=== PATIENT | female | born 1955 | race Caucasian/White ===

== ENCOUNTER 2022-10-25 08:54 | Outpatient (REF) | payer OTHER, SELFPAY ==
--- NOTE | ~2022-10-25 | XR_ITS ---
EXAMINATION: XR LEFT KNEE XR LUMBAR SPINE CLINICAL INFORMATION: Knee and low back pain. COMPARISON: None available. TECHNIQUE: 4 view left knee study. 3 view lumbar spine study. FINDINGS: Left knee: There is no evidence of acute fracture or dislocation of the left knee. Left knee joint spaces are maintained. There is minimal spurring lateral facet of the patella. No significant effusion is identified. Spurring about the patella at sites of insertion of the quadriceps and patella tendons is evident. There is a sclerotic margin to a circumscribed lesion within the proximal tibia at the metaphyseal diaphyseal junction measuring approximately 1.7 x 1.2 cm in size. Portions of the sclerotic margin are well-defined and this is likely a benign lesion. There is question of a possible second lesion with sclerotic margins about the lateral aspect of the proximal tibia in the region of the metaphysis, measuring 1.6 x 1.1 cm in size but overlies the proximal fibula and may be related to the fibula. No bony destruction is identified. No adjacent periosteal new bone formation. Lumbar sacral spine: There are 5 [id number] lumbar vertebra. No acute fracture, spondylolisthesis, or spondylolysis is appreciated. There is degenerative disc disease at the L4-L5 and L5-S1 levels with facet arthropathy seen L4-S1. Anterior marginal spurring is seen at the L2-L3 level. Pedicles are intact. No destructive bony lesions are seen. XR/XR lumbar spine 2-3V IMPRESSION: 2 lytic lesions with sclerotic margins at the level of the metaphyseal diaphyseal junction and metaphysis of the proximal left tibia. Margins are generally sharp with no bony destruction, expansion, or periosteal new bone formation. 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 Chondrosarcoma or metastatic lesion would appear less likely; but could have this appearance as well. MRI would be of help in further evaluation. Mild lumbar spondylosis as described.
--- NOTE | ~2022-10-25 | XR_ITS ---
EXAMINATION: XR LEFT KNEE XR LUMBAR SPINE CLINICAL INFORMATION: Knee and low back pain. COMPARISON: None available. TECHNIQUE: 4 view left knee study. 3 view lumbar spine study. FINDINGS: Left knee: There is no evidence of acute fracture or dislocation of the left knee. Left knee joint spaces are maintained. There is minimal spurring lateral facet of the patella. No significant effusion is identified. Spurring about the patella at sites of insertion of the quadriceps and patella tendons is evident. There is a sclerotic margin to a circumscribed lesion within the proximal tibia at the metaphyseal diaphyseal junction measuring approximately 1.7 x 1.2 cm in size. Portions of the sclerotic margin are well-defined and this is likely a benign lesion. There is question of a possible second lesion with sclerotic margins about the lateral aspect of the proximal tibia in the region of the metaphysis, measuring 1.6 x 1.1 cm in size but overlies the proximal fibula and may be related to the fibula. No bony destruction is identified. No adjacent periosteal new bone formation. Lumbar sacral spine: There are 5 [id number] lumbar vertebra. No acute fracture, spondylolisthesis, or spondylolysis is appreciated. There is degenerative disc disease at the L4-L5 and L5-S1 levels with facet arthropathy seen L4-S1. Anterior marginal spurring is seen at the L2-L3 level. Pedicles are intact. No destructive bony lesions are seen. XR/XR knee LT 4V IMPRESSION: 2 lytic lesions with sclerotic margins at the level of the metaphyseal diaphyseal junction and metaphysis of the proximal left tibia. Margins are generally sharp with no bony destruction, expansion, or periosteal new bone formation. 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 Chondrosarcoma or metastatic lesion would appear less likely; but could have this appearance as well. MRI would be of help in further evaluation. Mild lumbar spondylosis as described.
[2022-10-25 11:19] LABS: Free T4 (Free Thyroxine) 1.09 ng/dL (0.71-1.85); T4 Thyroxine 11.8 ug/dL (4.5-12.0); Thyroid Stimulating Hormone 1.27 uIU/mL (0.32-4.0)
[2022-10-27 08:50] LABS: Triiodothyronine T3 Total 143 ng/dL (76-181)
[2022-10-29 20:34] LABS: Thyroglobulin 9.1 ng/mL; Thyroglobulin Antibodies <1 IU/mL (< or = 1)
[2022-10-30 01:19] LABS: Thyroid Peroxidase Antibodies <1 IU/mL (<9)
== END 2022-10-25 08:55 | disposition home or self-care (01) ==
LOC: HO.LAB 08:54
PROVIDERS: PCP Registered Nurse; Visit Provider Registered Nurse
DX: M54.50 Low back pain, unspecified (principal); M25.562 Pain in left knee; G89.29 Other chronic pain; R94.6 Abnormal results of thyroid function studies
CPT/HCPCS: 36415; 72100; 73564; 84432; 84436; 84439; 84443; 84480; 86376; 86800

== ENCOUNTER 2022-12-06 12:39 | Outpatient (REF) | payer OTHER, SELFPAY ==
--- NOTE | ~2022-12-06 | MM_ITS ---
EXAMINATION: MM SCREENING DIGITAL BREAST TOMOSYNTHESIS, BILATERAL CLINICAL INFORMATION: Screening. Asymptomatic. COMPARISON: Mammography: This study is compared with prior exams dating back to 2013. TECHNIQUE: Digital breast tomosynthesis is performed in both the craniocaudal and mediolateral oblique views along with computer-aided detection (CAD). Synthesized 2D images are generated from the tomosynthesis. FINDINGS: There are scattered areas of fibroglandular density (ACR BI-RADS breast composition Category b). There are no significant masses, abnormal calcifications, or other abnormalities. MM/MM tomosynthesis screening BI IMPRESSION: No mammographic evidence of malignancy. ASSESSMENT: BI-RADS BI-RADS 1 - Negative RECOMMENDATION: Routine annual mammography screening. 1 year F/U This examination should not preclude the clinical evaluation of a suspicious palpable abnormality. This patient's information was entered into a reminder system with a target due date for their next mammogram.
--- NOTE | ~2022-12-06 | MM_ITS ---
EXAMINATION: BONE DENSITOMETRY CLINICAL INDICATION: Postmenopausal. COMPARISON: This is the patient's baseline examination. TECHNIQUE: Using a [employer] DXA System (software version: 13.1) manufactured by [employer], dual-energy x-ray absorptiometry was performed of the lumbar spine and left hip. The images are of good technical quality. Summary results are attached. FINDINGS: AP SPINE L1-L4: BMD 0.943 g/cm2, Z-score -0.7, T-score -2.0, osteopenia. LEFT FEMUR, NECK: BMD 0.784 g/cm2, Z-score -0.4, T-score -1.8, osteopenia. LEFT FEMUR, TOTAL: BMD 0.828 g/cm2, Z-score -0.3, T-score -1.4, osteopenia. IDENTIFIED RISK FACTORS: Menopause, renal, low calcium intake, secondary osteoporosis. HISTORY OF FRACTURE: None listed. MEDICATIONS: Calcium, vitamin D. MM/XR DEXA axial skeleton IMPRESSION: 1. DIAGNOSIS: Osteopenia based on the lowest T-score value of -2.0 in the lumbar spine applying World Health Organization criteria. 2. 10-YEAR FRACTURE RISK PREDICTION, FRAX: Major osteoporotic fracture (clinical spine, forearm, hip or shoulder) 6.0%. Hip fracture 1.0%. 3. Treatment Recommendations: NOF guidelines recommend consideration for treatment in postmenopausal women and men age 50 and older presenting with the following: -A hip or vertebral (clinical or morphometric) fracture. -T-score less than or equal to -2.5 at the femoral neck or spine after appropriate evaluation to exclude secondary causes. -Low bone mass at the hip or spine and a 10-year fracture probability by FRAX of greater than or equal to 3% for hip fracture or greater than or equal to 20% for major osteoporotic fracture based on the [place] adapted WHO algorithm. 4. Other Recommendations: All treatment decisions require clinical judgment and consideration of individual patient factors, including patient preferences, comorbidities, previous drug use, risk factors not captured in the FRAX model (e.g. frailty, falls, vitamin D deficiency, increased bone turnover, interval significant decline in bone density) and possible under or overestimation of fracture risk by FRAX. Additional medical evaluation for secondary cause of low bone mineral density may be appropriate. FUTURE SCAN RECOMMENDATION: People with diagnosed cases of osteoporosis or at high risk for fracture should have regular bone mineral density tests. For patients eligible for Medicare, routine testing is allowed once every 2 years. The testing frequency can be increased to one year for patients who have rapidly progressing disease, those who are receiving or discontinuing medical therapy to restore bone mass, or have additional risk factors.
== END 2022-12-06 12:40 | disposition home or self-care (01) ==
LOC: HO.MAMMO 12:39
PROVIDERS: PCP Student in an Organized Health Care Education/Training Program; Visit Provider Student in an Organized Health Care Education/Training Program
DX: Z12.31 Encounter for screening mammogram for malignant neoplasm of breast (principal); Z13.820 Encounter for screening for osteoporosis; Z78.0 Asymptomatic menopausal state
CPT/HCPCS: 77063; 77067; 77080

== ENCOUNTER → 2022-12-06 13:15 | Outpatient (BNV) | payer OTHER, SELFPAY | PROVIDERS: PCP Student in an Organized Health Care Education/Training Program; Visit Provider Radiology Diagnostic Radiology | DX: Z12.31 Encounter for screening mammogram for malignant neoplasm of breast (principal) | CPT/HCPCS: 77063; 77067; 77080 ==

== ENCOUNTER 2023-12-20 13:05 | Outpatient (REF) | payer OTHER, SELFPAY ==
--- NOTE | ~2023-12-20 | MM_ITS ---
EXAMINATION: MM SCREENING DIGITAL BREAST TOMOSYNTHESIS, BILATERAL CLINICAL INFORMATION: Screening. Asymptomatic. COMPARISON: Mammography: Comparison is made with available priors TECHNIQUE: Digital breast mammography with tomosynthesis is performed in both the craniocaudal and mediolateral oblique views along with computer-aided detection (CAD). FINDINGS: There are scattered areas of fibroglandular density (ACR BI-RADS breast composition Category b). There are no significant masses, abnormal calcifications, or other abnormalities. MM/MM tomosynthesis screening BI IMPRESSION: No mammographic evidence of malignancy. ASSESSMENT: BI-RADS BI-RADS 1 - Negative RECOMMENDATION: Routine annual mammography screening. 1 year F/U This examination should not preclude the clinical evaluation of a suspicious palpable abnormality. This patient's information was entered into a reminder system with a target due date for their next mammogram. Electronically signed by: Brooke Moore DO 01/02/2024 08:29 PM EDT
== END 2023-12-20 13:06 | disposition home or self-care (01) ==
LOC: HO.MAMMO 13:05
PROVIDERS: PCP Student in an Organized Health Care Education/Training Program; Visit Provider Student in an Organized Health Care Education/Training Program
DX: Z12.31 Encounter for screening mammogram for malignant neoplasm of breast (principal)
CPT/HCPCS: 77063; 77067

== ENCOUNTER → 2023-12-20 13:15 | Outpatient (BNV) | payer OTHER, SELFPAY | PROVIDERS: PCP Student in an Organized Health Care Education/Training Program; Visit Provider Internal Medicine | DX: Z12.31 Encounter for screening mammogram for malignant neoplasm of breast (principal) | CPT/HCPCS: 77063; 77067 ==

== ENCOUNTER 2024-02-10 08:48 | Outpatient (REF) | payer OTHER, SELFPAY ==
[2024-02-10 11:53] LABS: Hematocrit 46.9 % (37.0-47.0); Mean Corpuscular Hemoglobin 29.7 pg (27.0-33.0); Mean Corpuscular Volume 92.9 fL (80.0-98.0); Mean Platelet Volume 10.1 fL (9.4-12.3); Platelet Count 237 X10*3/uL (160-400); Red Blood Count 5.05 X10*6/uL (4.20-5.50); Red Cell Distribution Width 12.4 % (11.0-16.0); White Blood Count 5.3 X10*3/uL (4.8-10.8)
[2024-02-10 13:18] LABS: Alanine Aminotransferase 20 U/L (0-31); Alkaline Phosphatase 116 U/L (39-117); Anion Gap 13 (12-20); Aspartate Amino Transferase 29 U/L (5-31); Bilirubin Total 0.4 mg/dL (0.0-1.0); Blood Urea Nitrogen 18 mg/dL (9-16); Calcium 9.7 mg/dL (8.4-10.2); Carbon Dioxide 25 mmol/L (22-29); Chloride 105 mmol/L (96-108); Cholesterol 155 mg/dL (<200); Estimated Glomerular Filt Rate > 60; Glucose Random 167 mg/dL (60-115); HDL Cholesterol 50 mg/dL (>40); LDL Cholesterol Calculated 91 mg/dL (<100); Potassium 3.8 mmol/L (3.3-5.1); Sodium 139 mmol/L (135-145); TSH reflex Free T4 2.69 uIU/mL (0.32-4.0); Total Protein 7.9 g/dL (6.5-8.0); Triglycerides 72 mg/dL (<150)
[2024-02-10 13:19] LABS: Vitamin B12 439 pg/mL (200-900)
[2024-02-10 13:27] LABS: Estimated Average Glucose 171 mg/dL; Hemoglobin A1C 330.5649 umol/L; Hemoglobin A1c % 7.6 % (<6.0); Total Hemoglobin (HGBA1C) 5518.5269 umol/L
== END 2024-02-10 08:49 | disposition home or self-care (01) ==
LOC: HO.HHCL 08:48
PROVIDERS: Visit Provider Student in an Organized Health Care Education/Training Program
DX: E11.69 Type 2 diabetes mellitus with other specified complication (principal); Z79.4 Long term (current) use of insulin
CPT/HCPCS: 36415; 80053; 80061; 82607; 82746; 83036; 84443; 85027

== ENCOUNTER 2024-03-07 16:03 | Outpatient (REF) | payer OTHER, SELFPAY ==
--- NOTE | ~2024-03-07 | MR_ITS ---
EXAMINATION: MR BRAIN WITHOUT AND WITH CONTRAST CLINICAL INFORMATION: Vertigo. Pulsatile tinnitus. Hearing loss. COMPARISON: None available. TECHNIQUE: Multiplanar, multisequence MRI of the brain was obtained using a skull base protocol without and following the administration of 7.5 mL of Gadavist intravenous contrast. FINDINGS: No focal restricted diffusion is demonstrated to suggest acute or subacute cerebral ischemia. No evidence of acute or chronic hemorrhagic products on heme-sensitive imaging. Scattered periventricular and deep white matter T2 FLAIR hyperintensities consistent with mild to moderate underlying microangiopathy. Proportional prominence of the ventricles and sulcal spaces without evidence of obstructive hydrocephalus. No abnormal mass effect. No midline shift. Normal appearance of the pituitary gland. Normal positioning of the cerebellar tonsils. No mass of the cerebellopontine angles. Normal appearance of the cranial nerve V, VII, and VIII nerve roots. No edema or vascular loops near the nerve root entry sites. Normal appearance of the internal auditory canals without enhancing mass lesions. No abnormal enhancement along the course of the facial nerves bilaterally. Normal appearance of the labyrinthine structures without loss of T2 signal or abnormal enhancement. Normal arterial and venous vascular flow voids are present. No abnormal intracranial contrast enhancement. Normal, homogeneous marrow signal. Mild mucosal thickening of the paranasal sinuses. No signal abnormalities within the mastoids. MR/MR head/brain wo/w con IMPRESSION: 1. No acute intracranial abnormalities. No abnormal intracranial enhancement. 2. Mild to moderate underlying microangiopathy and generalized cerebral volume loss. 3. No additional MRI abnormalities to explain the patient's symptoms. Electronically signed by: Blaze Bhatti DO 03/18/2024 08:10 AM IMANI BUCKNER
[2024-03-07] MEDS: gadobutroL 7.5 ML VIAL IVPUSH (16:53)
== END 2024-03-07 16:04 | disposition home or self-care (01) ==
LOC: HO.MRI 16:03
PROVIDERS: PCP Student in an Organized Health Care Education/Training Program; Visit Provider Student in an Organized Health Care Education/Training Program
DX: H91.93 Unspecified hearing loss, bilateral (principal); H93.13 Tinnitus, bilateral; R42 Dizziness and giddiness; E11.69 Type 2 diabetes mellitus with other specified complication; Z79.4 Long term (current) use of insulin
CPT/HCPCS: 70553; A9585

== ENCOUNTER 2024-03-24 14:08 | Outpatient (REF) | payer OTHER, SELFPAY ==
[2024-03-24 17:02] LABS: Microalbumin Urine < 5.0 mg/L
== END 2024-03-24 14:09 | disposition home or self-care (01) ==
LOC: HO.HHCL 14:08
PROVIDERS: Visit Provider Student in an Organized Health Care Education/Training Program
DX: E11.69 Type 2 diabetes mellitus with other specified complication (principal); Z79.4 Long term (current) use of insulin
CPT/HCPCS: 82043; 82570

== ENCOUNTER 2024-10-08 11:35 | Outpatient (REF) | payer OTHER, SELFPAY ==
--- OUTSIDE RECORDS SUMMARY | 2024-10-08 12:19 | XMS_ITS | Encounter Summary ---
Author Organization [employer] Address [address] [place] [address] Care Team Providers Care Child Care Counselor Name Role Phone Greer Prince MD Primary Care Pro vider Trena Hagen PharmD Unavailable [phone] Encounter Details Date Type Department Care Team (Late st Contact Info) Description 03/26/[address] [facility] MEDICINE [address] [place] [address] Provider, MD Jose Martin Social History Tobacco Use Types Packs/Day Years Used Date Smoking Tobacco: Never Smokeless Tobacco: Never Alcohol Use Standard Drinks/Week Comments Never 0 (1 standard drink = 0.6 oz pur e alcohol) Depression Answer Date Recorded Patient Health Questionnaire-9 Score 0 09/26/2022 Housing Stability Answer Date Recorded What is your housing situation today? I have terranceeverett sin 02/05/[address] you li ve. Do you have problems with any of the following? None of the above 02/05/2023 Food Insecurity Answer Date Recorded Within the past 12 months, y ou worried that your food would run out before you got money to buy more: Never True 02/05/2023 Within the past 12 months,th e food you bought just didn't last and you didn't have enough money to get more: Never True Transportation Answer Date Recorded In the past 12 months, has l ack of transportation kept you from medical appts, meetings, work or from getting things needed for daily living? No 02/05/2023 Utilities Answer Date Recorded In the past 12 months, has t he electric, gas, oil or water company threatened to shut off services in your home? No 02/05/2023 Depression Answer Date Recorded Patient Health Questionnaire-2 Score 0 09/26/2022 Comments Unknown Sex and Gender Information Value Date Recorded Sex Assigned at Female 09/26/2022 10:13 AM EDT Legal Sex Female 9:01 AM EDT Gender Identity Female 09/26/2022 10:13 AM EDT Sexual Orientation Don't know 11/05/2022 10 :44 AM EDT Sexual Orientation Straight 11/05/2022 10 :44 AM EDT documented as of this encounter Plan of Treatment Upcoming Encounters Date Type Department Care Team (Late st Contact Info) Description 10/12/2024 1:45 PM EDT Office Visit [facility] OPTOMETRY [address], [place] [id number] TarkaVal, OD [address] [place] [address] 10/16/2024 2:30 PM EDT Medication Management [facility] MEDICINE [address] [place] [address] Piers-Tereza Serranosa, PharmD [address] [place] [address] documented as of this encounter Goals Goal Patient Goal Type Associated Problems Recent Progress Patient-Stated? Author Blood Pressure < 140/90 Blood Pressure 100/60(2024 1:55 PM EDT) No Piers-Gambl e, Trena, PharmD Hemoglobin A1c < 7 Result Component 8.7( 2:04 PM EDT) No Piers-Gambl e, Trena, PharmD documented as of this encounter Procedures Procedure Name Priority Date/Time Associated Diagnosis Comments HM COLONOSCOPY Routine 12/03/2023 2:09 PM EDT documented in this encounter Results * Hm Colonoscopy (12/03/2023 2:09 PM EDT) us Historical Provider HEALTH MAINTENANCE Final Result documented in this encounter Visit Diagnoses Not on filedocumented in this encounter Additional Health Concerns Assessment Noted Time PHQ-9 Depression Total Score: 0 09/27/19 23 10:42 AM EDT documented as of this encounter Care Teams Child Care Counselor Relationship Specialty Start Date End Date Greer Prince MD [address] [place] [address] PCP - General Internal Medicine 09/26/22 Trena Hagen, FaisalD [address] [place] [address] Pharmacist Internal Medicine 05/29/24 documented as of this encounter
--- OUTSIDE RECORDS SUMMARY | 2024-10-08 12:19 | XMS_ITS | Clinical Summary ---
Author Organization [address] [facility] Address [address] [place] [address] Phone Care Team Providers Care Stallion Manager Name Role Phone Unavailable Primary Care Provider Unavailabl e Social History Tobacco Use Types Packs/Day Years Used Date Smoking Tobacco: Never Assessed Comments Unknown Sex and Gender Information Value Date Recorded Sex Assigned at Not on file Legal Sex Female 11:35 PM EST Gender Identity Not on file Sexual Orientation Not on file Plan of Treatment Health Maintenance Due Date Last Done Comments Breast Cancer Screening 1955 Diabetes: Annual GFR (Glomer ular Filtration Rate) 1955 Diabetes: Annual Foot Exam 09/19/1963 Diabetes: Annual Retina Eye Exam 09/19/1963 DTaP,Tdap,and Td Vaccines (1 - Tdap) 1972 Pneumococcal Vaccine: 50+ Ye ars (1 of 2 - PCV) 1972 Zoster Vaccines (1 of 2) 09/19/2003 COVID-19 Vaccine ( - 2023-2 5 season) 2023 Cholesterol Screening (Lipid Panel) 08/08/2024 Colorectal Cancer Screening: Colonoscopy 08/08/2024 Depression Screening 08/08/2024 Diabetes: Annual Urine Albumin-Creatinine Ratio (uACR) 08/08/2024 Diabetes: Blood Sugar Contro l Test (HGBA1C) 08/08/2024 Falls Risk Assessment 08/08/2024 Hepatitis C Screening 08/08/2024 Osteoporosis Screening (Bone Density Screening) 08/08/2024 Social Influencers of Health Screening 08/08/2024 Influenza Vaccine (Season Ended) 2024 RSV Immunization Adult Patie nts (1 - 1-dose 75+ series) 2028 HIB Vaccines Aged Out No longer eligi ble based on patient's age to complete this topic HPV Vaccines Aged Out No longer eligi ble based on patient's age to complete this topic Hepatitis A Vaccines Aged Out No long er eligible based on patient's age to complete this topic Hepatitis B Vaccines Aged Out No long er eligible based on patient's age to complete this topic IPV Vaccines Aged Out No longer eligi ble based on patient's age to complete this topic MMR Vaccines Aged Out No longer eligi ble based on patient's age to complete this topic Meningococcal ACWY Vaccine Aged Out N o longer eligible based on patient's age to complete this topic Meningococcal B Vaccine Aged Out No l onger eligible based on patient's age to complete this topic RSV Immunization Patients Un ramirez 20 months Aged Out No longer eligible b ased on patient's age to complete this topic Varicella Vaccines Aged Out No longer eligible based on patient's age to complete this topic Insurance [place] - [place] [facility] MEDICAID
[2024-10-08 13:36] LABS: Hemoglobin A1C 292.4535 umol/L; Total Hemoglobin (HGBA1C) 4014.8683 umol/L
[2024-10-08 13:53] LABS: Alanine Aminotransferase 22 U/L (0-31); Albumin Level 4.0 g/dL (3.5-5.0); Alkaline Phosphatase 94 U/L (39-117); Aspartate Amino Transferase 26 U/L (5-31); Cholesterol 135 mg/dL (<200); HDL Cholesterol 55 mg/dL (>40); Total Protein 7.3 g/dL (6.5-8.0); Triglycerides 51 mg/dL (<150)
== END 2024-10-08 11:36 | disposition home or self-care (01) ==
LOC: HO.HHCL 11:35
PROVIDERS: PCP Student in an Organized Health Care Education/Training Program; Visit Provider Student in an Organized Health Care Education/Training Program
DX: E11.69 Type 2 diabetes mellitus with other specified complication (principal); Z79.4 Long term (current) use of insulin
CPT/HCPCS: 36415; 80061; 80076; 83036

== ENCOUNTER 2024-12-31 17:45 | Outpatient (REF) | payer OTHER, SELFPAY ==
--- OUTSIDE RECORDS SUMMARY | 2024-12-31 15:00 | XMS_ITS | Encounter Summary ---
Author Organization [employer] Address [address] [place] [address] 7 [place] [address] Care Team Providers Care Waist Fitter Name Role Phone Greer Prince MD Primary Care Pro vider Trena Hagen PharmD Unavailable [phone]- [phone] Reason for Referral * Imaging (Routine) - Authorized Specialty Diagnoses / Procedures Referred By Contac t Referred To Contact Radiology Diagnoses Postmenopausal bleeding Procedures US Pelvis Transvaginal Greer Prince MD [address] [place] [address] Phone: tel: fax: [address] Phone: tel: fax: Referral ID Status Reason Start Date Expiration Date V isits Requested Visits Authorized [id number] Authorized 12/31/2024 12/31/2025 1 1 * Imaging (Routine) - Authorized Specialty Diagnoses / Procedures Referred By Contac t Referred To Contact Radiology Diagnoses Postmenopausal bleeding Procedures Us Pelvis complete Greer Prince MD [address] [place] [address] Phone: tel: fax: [address] Phone: tel: fax: Referral ID Status Reason Start Date Expiration Date V isits Requested Visits Authorized [id number] Authorized 12/31/2024 12/31/2025 1 1 Encounter Details Date Type Department Care Team (Late st Contact Info) Description 12/31/2024 3:00 PM EDT Office Visit [facility] MEDICINE [address] [place] [address] Greer Prince MD [address] [place] [address] Type 2 diabetes mellitus with other specified complication, with long-term current use of insulin ([facility]) (Primary Dx); Dietary counseling; Exercise counseling; Health care directive on file; Postmenopausal bleeding; Dysuria; Encounter for immunization Social History Tobacco Use Types Packs/Day Years Used Date Smoking Tobacco: Never Smokeless Tobacco: Never Tobacco Cessation:Counseling Given: Not Answered Alcohol Use Standard Drinks/Week Comments Never 0 (1 standard drink = 0.6 oz pur e alcohol) Depression Answer Date Recorded Patient Health Questionnaire-9 Score 0 12/31/2024 Patient Health Questionnaire-9 Score 0 12/31/2024 Last PHQ-9: Questionnaire Data Not on file 0 12/31/2024 Housing Stability Answer Date Recorded What is your housing situation today? I have terranceeverett sin 12/31/[address] you li ve. Do you have problems with any of the following? None of the above 12/31/2024 Food Insecurity Answer Date Recorded Within the past 12 months, y ou worried that your food would run out before you got money to buy more: Sometimes True 2024 Within the past 12 months,th e food you bought just didn't last and you didn't have enough money to get more: Sometimes True 12/31/2024 Transportation Answer Date Recorded In the past 12 months, has l ack of transportation kept you from medical appts, meetings, work or from getting things needed for daily living? No 12/31/2024 Utilities Answer Date Recorded In the past 12 months, has t he electric, gas, oil or water company threatened to shut off services in your home? No 12/31/2024 Depression Answer Date Recorded Patient Health Questionnaire-2 Score 0 12/31/2024 Internet Access Answer Date Recorded Internet Access Q1 No 12/31/2024 Internet Access Q2 I do not want or need it 12/08 Comments Unknown Sex and Gender Information Value Date Recorded Sex Assigned at Female 09/26/2022 10:13 AM EDT Legal Sex Female 9:01 AM EDT Gender Identity Female 09/26/2022 10:13 AM EDT Sexual Orientation Don't know 11/05/2022 10 :44 AM EDT Sexual Orientation Straight 11/05/2022 10 :44 AM EDT documented as of this encounter Last Filed Vital Signs Vital Sign Reading Time Taken Comments Blood Pressure 100/60 12/31/2024 3:23 PM EDT Pulse 83 12/31/2024 3:23 PM EDT Temperature 36.1 C (96.9 F) 12/31/2024 3:23 PM EDT Respiratory Rate 20 12/31/2024 3:23 PM EDT Oxygen Saturation - - Inhaled Oxygen Concentration - - Weight 69.9 kg (154 lb) 12/31/2024 3:23 PM EDT Height 160 cm (5' 3 ) 12/31/2024 3:23 PM EDT Body Mass Index 27.28 12/31/2024 3:23 PM EDT documented in this encounter Functional Status * Over the past 2 weeks, how often have you been bothered by any of the following problems? Question Answer Date of Assessment Author Patient Health Questionnaire -2 Score 0 12/31/2024 3:24 PM EDT Yoly Ambrose MA * Little interest or pleasure in doing things Answer Date of Assessment Author Not at all 12/31/2024 3:24 PM EDT Chidi Ambrose MA * Feeling down, depressed, or hopeless Answer Date of Assessment Author Not at all 12/31/2024 3:24 PM EDT Chidi Ambrose MA * Trouble falling or staying asleep, or sleeping too much Answer Date of Assessment Author Not at all 12/31/2024 3:24 PM EDT Chidi Ambrose MA * Feeling tired or having little energy Answer Date of Assessment Author Not at all 12/31/2024 3:24 PM EDT Chidi Ambrose MA * Poor appetite or overeating Answer Date of Assessment Author Not at all 12/31/2024 3:24 PM EDT Chidi Ambrose MA * Feeling bad about yourself - or that you are a failure or have let yourself or your family down Answer Date of Assessment Author Not at all 12/31/2024 3:24 PM EDT Chidi Ambrose MA * Trouble concentrating on things, such as reading the newspaper or watching television Answer Date of Assessment Author Not at all 12/31/2024 3:24 PM EDT Chidi Ambrose MA * Moving or speaking so slowly that other people could have noticed? Or the opposite - being so fidgety or restless that you have been moving around a lot more than usual. Answer Date of Assessment Author Not at all 12/31/2024 3:24 PM EDT Chidi Ambrose MA * Thoughts that you would be better off or hurting yourself in some way Answer Date of Assessment Author Not at all 12/31/2024 3:24 PM EDT Chidi Ambrose MA * Patient Health Questionnaire-9 Score Answer Date of Assessment Author 0 12/31/2024 3:24 PM MADYT Chidi Ambrose MA * Over the last 2 weeks, how often have you been bothered by any of the following problems? Question Answer Date of Assessment Author Feeling nervous, anxious, or on edge 0 12/31/2024 3:24 PM EDT Yoly Ambrose MA Not being able to stop or co ntrol worrying 0 12/31/2024 3:24 PM EDT Yoly Ambrose MA Worrying too much about diff erent things 0 12/31/2024 3:24 PM EDT Yoly Ambrose MA Trouble relaxing 0 12/31/2024 3:24 PM EDT Yoly Hinojosa MA Being so restless that it is hard to sit still 0 12/31/2024 3:24 PM EDT Yoly Ambrose MA Becoming easily annoyed or irritable 0 12/31/2024 3:24 PM EDT Yoly Ambrose MA Feeling afraid as if somethi ng awful might happen 0 12/31/2024 3:24 PM EDT Yoly Ambrose MA OR[place]ILLE-7 Total Score 0 12/31/2024 3:24 PM EDT Yoly Ambrose MA documented as of this encounter Plan of Treatment Upcoming Encounters Date Type Department Care Team (Late st Contact Info) Description 05/13/2025 1:30 PM EST Office Visit [facility] OPTOMETRY [address] [place] [address] Val Crowley, OD [address] [place] [address] Scheduled Orders Name Type Priority Associated Diagnoses Orde r Schedule Albumin, Random Urine W/Creatinine Lab Routine Health care directive on file Expected: 12/31/2024 (Approximate), Expires: 12/31/2025 CBC auto differential Lab Routine Health care directive on file Expected: 12/31/2024 (Approximate), Expires: 12/31/2025 Comprehensive Metabolic Panel Lab Routine Health care directive on file Expected: 12/31/2024 (Approximate), Expires: 12/31/2025 Hemoglobin A1c Lab Routine Health care directive on file Expected: 12/31/2024 (Approximate), Expires: 12/31/2025 Lipid Panel, Standard Lab Routine Health care directive on file Expected: 12/31/2024 (Approximate), Expires: 12/31/2025 TSH with Reflex to Free T4 Lab Routine Health care directive on file Expected: 12/31/2024 (Approximate), Expires: 12/31/2025 Vitamin B12 (Cobalamin) and Folate Panel, Serum Lab Routine Health care directive on file Expected: 12/31/2024 (Approximate), Expires: 12/31/2025 Vitamin D, 25-Hydroxy, Total, Immunoassay Lab Routine Health care directive on file Expected: 12/31/2024 (Approximate), Expires: 12/31/2025 Us Pelvis complete Imaging Routine Postmenopausal bleeding Expected: 12/31/2024, Expires: 12/31/2025 US Pelvis Transvaginal Imaging Routine Postmenopausal bleeding Expected: 12/31/2024, Expires: 12/31/2025 documented as of this encounter Goals Goal Patient Goal Type Associated Problems Recent Progress Patient-Stated? Author Blood Pressure < 140/90 Blood Pressure 100/60(2024 3:23 PM EDT) No Trena Sanchez PharmD Hemoglobin A1c < 7 Result Component 8.8( 11:48 AM EDT) No Trena Sanchez PharmD documented as of this encounter Procedures Procedure Name Priority Date/Time Associated Diagnosis Comments URINALYSIS, COMPLETE, WITH REFLEX TO CULTURE Routine 12/31/2024 5:46 PM EDT Dysuria documented in this encounter Results * (ABNORMAL) Urinalysis, Complete, with Reflex to Culture (12/31/2024 5:46 PM EDT) Color Urine Yellow [facility] Appearance Urine Clear [facility] PH 6.0 5.0 - 9.0 [facility] Glucose Urine UA >=1000(A) Negative mg/dL [facility] Urine Blood Negative Negative [facility] Specific [place] - Urine >=1.030(H) 1.005 - 1.025 [facility] Urine Protein Negative Neg-Trace mg/dL [facility] Urine Ketones Negative Negative mg/dL [facility] Nitrite Urine Negative Negative [facility] Leukocyte Esterase Urine Negative Negative [facility] RBC Urine 0-2 0 - 2 /HPF [facility] Urine WBC 0-5 0 - 5 /HPF [facility] Urine Squamous Epithelial Cell 0-2 0 - 2 /HPF [facility] Urine Bacteria None Seen None Seen [facility] Hyaline Casts, Urine 0-2 0 - 2 /LPF [facility] Urine 12/31/2024 5:46 PM EDT 12/31/2024 5:46 PM EDT Narrative [facility] - 12/31/2024 6:23 PM EDT Urine, Clean Catch Greer Winkler MD LAB URINE ORDERAB LES Final Result [facility] [address] [place] [address] [phone] documented in this encounter Visit Diagnoses Diagnosis Type 2 diabetes mellitus with other specified complication, with long-term current use of insulin ([facility])- Primary Dietary counseling Dietary surveillance and counseling Exercise counseling Health care directive on file Postmenopausal bleeding Dysuria Encounter for immunization documented in this encounter Additional Health Concerns Assessment Noted Time PHQ-9 Depression Total Score: 0 01/01/20 3:24 PM EDT documented as of this encounter Care Teams Waist Fitter Relationship Specialty Start Date End Date Greer Prince MD [address] [place] [address] PCP - General Internal Medicine 09/26/22 Trena Hagen, FaisalD [address] [place] [address] Pharmacist Internal Medicine 05/29/24 documented as of this encounter
[2024-12-31 18:12] LABS: Appearance Urine Clear; Glucose Urine UA >=1000 mg/dL (Negative); PH 6.0 (5.0-9.0); Specific Gravity - Urine >= 1.030 (1.005-1.025); UMIC TRIGGER UACC YES
--- OUTSIDE RECORDS SUMMARY | 2024-12-31 20:04 | XMS_ITS | Encounter Summary ---
Author Organization [employer] Address [address] [facility] 7t [place] [address] Care Team Providers Care Boiler Assistant Operator Name Role Phone Greer Prince MD Primary Care Pro vider Trena Hagen PharmD Unavailable [phone]- [phone] Encounter Details Date Type Department Care Team (Latest Contact Info) Description 12/31/2024 Travel Social History Tobacco Use Types Packs/Day Years [...] is your housing situation today? I have terrance sing 12/31/[address] you li [...] AM EDT documented as of this encounter Functional Status * Over the [...] Author Not at all 12/31/2024 3:24 PM MADYT Chidi Ambrose MA * Trouble falling or staying asleep, or sleeping too much Answer Date of Assessment Author Not at all 12/31/2024 3:24 PM MADYT Chidi Ambrose MA * Feeling tired or having little energy Answer Date of Assessment Author Not at all 12/31/2024 3:24 PM EDT Chidi Ambrose MA * Poor appetite or overeating Answer Date of Assessment Author Not at all 12/31/2024 3:24 PM MADYT Chidi Ambrose MA * Feeling bad about [...] of Assessment Author 0 12/31/2024 3:24 PM EDT Chidi Ambrose MA * Over the last [...] Description 05/13/2025 1:30 PM EST Office Visit [facility] OPTOMETRY [address] [place], [place] [phone] Val Crowley, OD [address] [place] [address] documented as of this encounter Goals Goal Patient Goal Type Associated Problems Recent Progress Patient-Stated? Author Blood Pressure < 140/90 Blood Pressure 100/60(2024 3:23 PM EDT) No Trena Sanchez, PharmD Hemoglobin A1c < 7 Result Component 8.8( 11:48 AM EDT) No Trena Sanchez, PharmD documented as of this encounter Visit Diagnoses Not on filedocumented in this encounter Additional Health Concerns Assessment Noted Time PHQ-9 Depression Total Score: 0 01/01/20 3:24 PM EDT documented as of this encounter Care Teams Boiler Assistant Operator Relationship Specialty Start Date End Date Greer Prince MD [address] [place] [address] PCP - General Internal Medicine 09/26/22 Trena Hagen PharmD [address] [place] [phone] Pharmacist Internal Medicine 05/29/24 documented as of this encounter
--- OUTSIDE RECORDS SUMMARY | 2024-12-31 20:04 | XMS_ITS | Encounter Summary ---
Author Organization [employer] Address [address] [place] [address] 7t [place] [address] Care Team Providers Care Petrophysical Engineer Name Role Phone Greer Prince MD Primary Care Pro vider Trena Hagen PharmD Unavailable [phone]- [phone] Reason for Visit * Reason Onset Date Comments Appointment Request 05/19/2024 Encounter Details Date Type Department Care Team ([facility] st Contact Info) Description 05/19/2024 Telephone [facility] MEDICINE [address] [place], [place] [phone] Greer Prince MD [address] [place], [place] [phone] Appointment Request Social History Tobacco Use Types Packs/Day Years [...] AM EDT documented as of this encounter Miscellaneous Notes * Telephone Encounter - Sascha Monzon - 05/19/2024 10:18 AM EST Tc from pt requesting to changed today appt at 1:30pm. Pt is requesting a call back regarding appt change [phone] documented in this encounter Plan of Treatment Upcoming Encounters Date Type Department Care Team (Late st Contact Info) Description 05/13/2025 1:30 PM EST Office Visit [facility] OPTOMETRY [address] [place] [address] Val Crowley, OD [address] [place] [address] documented as of this encounter Goals Goal Patient Goal Type Associated Problems Recent Progress Patient-Stated? Author Blood Pressure < 140/90 Blood Pressure 100/60(2024 3:23 PM EDT) No Prestons-Gambl jasbir, Trena, PharmD Hemoglobin A1c < 7 Result Component 8.8( 11:48 AM EDT) No Prestons-Gambl eTrena, PharmD documented as of this encounter Visit Diagnoses Not on filedocumented in this encounter Additional Health Concerns Assessment Noted Time PHQ-9 Depression Total Score: 0 09/27/19 23 10:42 AM EDT documented as of this encounter Care Teams Petrophysical Engineer Relationship Specialty Start Date End Date Greer Prince MD [address] [place], [place] [phone] PCP - General Internal Medicine 09/26/22 Trena Hagen PharmD [address] [place] [address] Pharmacist Internal Medicine 05/29/24 documented as of this encounter
--- OUTSIDE RECORDS SUMMARY | 2024-12-31 20:04 | XMS_ITS | Encounter Summary ---
Author Organization [employer] Address [address] [place] [address] 7t [place] [address] Care Team Providers Care Correctional Sergeant Name Role Phone Greer Prince MD Primary Care Pro vider Trena Hagen PharmD Unavailable [phone]- [phone] Reason for Visit * Reason Onset Date Comments Other 01/03/2023 Encounter Details Date Type Department Care Team (Late st Contact Info) Description 01/03/2023 Telephone [facility] MEDICINE [address] [place] [address] [phone] Greer Prince MD [address] [place], [place] [phone] Other Social History Tobacco Use Types Packs/Day Years Used Date Smoking Tobacco: Never Smokeless Tobacco: Never Alcohol Use Standard Drinks/Week Comments Never 0 (1 standard drink = 0.6 oz pur e alcohol) Depression Answer Date Recorded Patient Health Questionnaire-9 Score 0 09/26/2022 Depression Answer Date Recorded Patient Health Questionnaire-2 [...] encounter Miscellaneous Notes * Telephone Encounter - Shilpa Nagy - 01/03/2023 10:40 AM EDT Tc from Maria Esther at [facility] calling in regards to MR Knee w/o Contrast Left. States orders needs to say with and without contrast due to diagnoses. Please fax new order to [phone] documented in this encounter Plan of Treatment Upcoming Encounters Date Type Department Care Team (Late st Contact Info) Description 05/13/2025 1:30 PM EST Office Visit [facility] OPTOMETRY [address] [place], [place] [phone] TarkaVal, OD [address] [place] [address] documented as of this encounter Goals Goal [...] documented as of this encounter Care Teams Correctional Sergeant Relationship Specialty Start Date End Date Greer Prince MD [address] [place] [address] PCP - General Internal Medicine 09/26/22 Trena Hagen, PharmD [address] [place], [place] [phone] Pharmacist Internal Medicine 05/29/24 documented as of this encounter
--- OUTSIDE RECORDS SUMMARY | 2024-12-31 20:04 | XMS_ITS | Encounter Summary ---
Author Organization [employer] Address [address] [place] [address] 7t [place] [address] Care Team Providers Care Wireless Consultant Name Role Phone Greer Prince MD Primary Care Pro vider Trena Hagen PharmD Unavailable [phone] Reason for Visit * Reason Comments Med Refill Encounter Details Date Type Department Care Team (Late st Contact Info) Description 01/13/[address] [facility] MEDICINE [address] [place], [place] [phone] Greer Prince MD [address] [place], [place] [phone] Social History Tobacco Use Types Packs/Day Years [...] Description 05/13/2025 1:30 PM EST Office Visit [facility] OPTOMETRY [address] [place], [place] [phone] Val Crowley, OD [address] [place] [address] documented as of this encounter Goals Goal [...] Time PHQ-9 Depression Total Score: 0 09/27/19 10:42 AM EDT documented as of this encounter Care Teams Wireless Consultant Relationship Specialty Start Date End Date Greer Prince MD [address] [place] [address] PCP - General Internal Medicine 09/26/22 Trena Hagen, PharmD [address] [place] [phone] Pharmacist Internal Medicine 05/29/24 documented as of this encounter
--- OUTSIDE RECORDS SUMMARY | 2024-12-31 20:04 | XMS_ITS | Encounter Summary ---
Author Organization [employer] Address [address] [place] [address] 7t [place] [address] Care Team Providers Care Electrophysiology Tech Name Role Phone Greer Prince MD Primary Care Pro vider Trena Hagen PharmD Unavailable [phone]- [phone] Reason for Visit * Reason Comments Med Change Request Encounter Details Date Type Department Care Team (Late st Contact Info) Description 12/31/2024 Refill [facility] MEDICINE [address] [place], [place] [phone] Greer Prince MD [address] [place], [place] [phone] Type 2 diabetes mellitus with other specified complication, with long-term current use of insulin ([facility]) Social History Tobacco Use Types Packs/Day Years [...] Description 05/13/2025 1:30 PM EST Office Visit [facility] OPTOMETRY [address] [place] [address] Val Crowley, OD [address] [place] [address] documented as of this encounter Goals Goal Patient Goal Type Associated Problems Recent Progress Patient-Stated? Author Blood Pressure < 140/90 Blood Pressure 100/60(2024 3:23 PM EDT) No Trena Sanchez PharmD Hemoglobin A1c < 7 Result Component 8.8( 11:48 AM EDT) No Trena Sanchez PharmD documented as of this encounter Visit Diagnoses Diagnosis Type 2 diabetes mellitus with other specified complication, with long-term current use of insulin ([facility]) documented in this encounter Additional Health Concerns Assessment Noted Time PHQ-9 Depression Total Score: 0 01/01/20 25 3:24 PM EDT documented as of this encounter Care Teams Electrophysiology Tech Relationship Specialty Start Date End Date Greer Prince MD [address] [place] [address] PCP - General Internal Medicine 09/26/22 Trena Hagen PharmD [address] [place] [phone] Pharmacist Internal Medicine 05/29/24 documented as of this encounter
--- OUTSIDE RECORDS SUMMARY | 2024-12-31 20:04 | XMS_ITS | Encounter Summary ---
Author Organization [employer] Address [address] [place] [address] 7 [place] [address] Care Team Providers Care Passenger Elevator Operator Name Role Phone Greer Prince MD Primary Care Pro vider Trena Hagen PharmD Unavailable [phone]- [phone] Encounter Details Date Type Department Care Team (Late st Contact Info) Description 04/22/2024 Telephone [facility] MEDICINE [address] [place], [place] [phone] Greer Prince MD [address] [place], [place] [phone] Social History Tobacco Use Types Packs/Day Years Used Date Smoking Tobacco: Never Smokeless Tobacco: Never Alcohol Use Standard Drinks/Week Comments Never 0 (1 standard drink = 0.6 oz pur e alcohol) Depression Answer Date Recorded Patient Health Questionnaire-9 Score 0 09/26/2022 Housing Stability Answer Date Recorded What is your housing situation today? I have terrance sin 02/05/[address] you [...] Description 05/13/2025 1:30 PM EST Office Visit [facility] OPTOMETRY [address] [place], [place] [phone] Val Crowley, OD [address] [place] [address] documented as of this encounter Goals Goal [...] documented as of this encounter Care Teams Passenger Elevator Operator Relationship Specialty Start Date End Date Greer Prince MD [address] [place] [address] [phone] PCP - General Internal Medicine 09/26/22 Trena Hagen, PharmD [address] [place] [phone] Pharmacist Internal Medicine 05/29/24 documented as of this encounter
--- OUTSIDE RECORDS SUMMARY | 2024-12-31 20:04 | XMS_ITS | Encounter Summary ---
Author Organization [email or web address] Address [address] [facility] 7t [place] [address] Care Team Providers Care Foreign Food Cook Specialty Name Role Phone Greer Prince MD Primary Care Pro vider Trena Hagen PharmD Unavailable [phone]- [phone] Encounter Details Date Type Department Care Team ([facility] st Contact Info) Description 12/30/2024 Telephone [facility] [address] [place], [place] [phone] [place] Social History Tobacco Use Types Packs/Day Years [...] housing situation today? I have terrance sin 12/31/[address] you [...] encounter Miscellaneous Notes * Telephone Encounter - Ashley Mckinney MA - 12/30/2024 3:08 PM EDT Chart Prep Labs: done Images: not applicable Referrals: internal Vaccines due: Covid and Flu Screenings: eye exam and foot exam Overdue care gaps: SBIRT, SDOH, and PHQ-9 documented in this encounter Plan of Treatment Upcoming Encounters Date Type Department Care Team (Late st Contact Info) Description 05/13/2025 1:30 PM EST Office Visit [facility] OPTOMETRY [address] [place] [address] Val Crowley, OD [address] [place] [address] documented as of this encounter Goals Goal Patient Goal Type Associated Problems Recent Progress Patient-Stated? Author Blood Pressure < 140/90 Blood Pressure 100/60(2024 3:23 PM EDT) No PrestonsTrena Burk, PharmD Hemoglobin A1c < 7 Result Component 8.8( 11:48 AM EDT) No Trena Sanchez, PharmD documented as of this encounter Visit Diagnoses Not on filedocumented in this encounter Additional Health Concerns Assessment Noted Time PHQ-9 Depression Total Score: 0 09/27/19 10:42 AM EDT documented as of this encounter Care Teams Foreign Food Cook Specialty Relationship Specialty Start Date End Date Greer Prince MD [address] [place] [address] PCP - General Internal Medicine 09/26/22 Trena Hagen, Herve [address] [place] [phone] Pharmacist Internal Medicine 05/29/24 documented as of this encounter
--- OUTSIDE RECORDS SUMMARY | 2024-12-31 20:04 | XMS_ITS | Clinical Summary ---
Author Organization [address] [facility] Address [address] [place] [address] Phone Care Team Providers Care Seismic Plotter Name Role Phone Unavailable Primary Care Provider [...] Last Done Comments Breast Cancer Screening 1955 DTaP,Tdap,and Td Vaccines (1 - Tdap) 1972 Pneumococcal Vaccine: 50+ Ye ars (1 of 2 - PCV) 1972 Zoster Vaccines (1 of 2) 09/19/2003 Depression Screening 04/08/2024 Colorectal Cancer Screening: Colonoscopy 08/08/2024 Falls Risk Assessment 08/08/2024 Hepatitis C Screening 08/08/2024 Osteoporosis Screening (Bone Density Screening) 08/08/2024 Social Influencers of Health Screening 08/08/2024 COVID-19 Vaccine ( - 2023-2 5 season) 2024 Influenza Vaccine (#1) 2024 RSV Immunization Adult Patie nts (1 [...] complete this topic Insurance [place] - [place] [facility] MEDICAID
--- OUTSIDE RECORDS SUMMARY | 2024-12-31 20:04 | XMS_ITS | Clinical Summary ---
Author Organization [employer] Address [address] [place] [address] [address] [place] [address] Care Team Providers Care Orthopaedic Surgeon Name Role Phone Greer Prince MD Primary Care Pro vider Trena Hagen PharmD Unavailable Allergies Active Allergy Reactions Criticality Noted Date Comments Metformin 10/29/2022 Other reaction(s): GI Medications Diclofenac Sodium (Voltaren) 1 % gelIndications :Chronic bilateral low back pain without sciatica,Chron ic pain of left knee Apply 2 g topically if needed in the morning and at bedtime (muscle pain). 100 g 3 05/06/19 24 Active lidocaine (Lidoderm) 5 % patch APPLY 1 PATCH TOPICALLY TO SKIN IN THE MORNING. LEAVE ON FOR 12 HOURS AND OFF FOR 12 HOURS DIRECTED 30 patch 2 05/09/19 24 Active melatonin 3 MG tablet TAKE 1 TABLET BY MOUTH DAILY AT BEDTIME 30 tablet 2 06/10/19 24 Active omeprazole (PriLOSEC) [address] capsule TAKE 1 CAPSULE BY MOUTH ONCE DAILY BEFORE BREAKFAST 90 capsule 1 08/06/19 24 Active aspirin (Aspirin Low Dose) 81 MG EC tablet Take 1 tablet (81 mg) by mouth Once per day. 90 tablet 1 01/13/20 24 Active meclizine (Antivert) 25 MG tabletIndicati ons:Dizziness Take 0.5 tablets (12.5 mg) by mouth every 8 (eight) hours if needed for dizziness. 30 tablet 01/15/20 24 025 Active acetaminophen (Tylenol) 325 MG tabletIndicati ons:Chronic pain of left knee Take 1-2 tablets (325-650 mg) by mouth every 8 (eight) hours if needed (pain or fever). 100 tablet 2 01/15/20 24 025 Active Continuous Glucose Geophysical Party Chief (FreeStyle Janey 2 [place]) deviceIndicati ons:Type 2 diabetes mellitus with other specified complication, with long-term current use of insulin ([facility]) Use as directed to monitor glucose ever 8 hours. 1 each 01/31/20 24 Active rosuvastatin (Crestor) 20 MG tabletIndicati ons:Type 2 diabetes mellitus with other specified complication, with long-term current use of insulin ([facility]) Take 1 tablet (20 mg) by mouth Once per day. 30 tablet 11 03/03/20 24 025 Active dapagliflozin (Farxiga) 10 MGIndications: Type 2 diabetes mellitus with other specified complication, with long-term current use of insulin ([facility]) Take 1 tablet (10 mg) by mouth in the morning. 90 tablet 3 04/14/19 25 Active glucose blood (FreeStyle Precision Nathan Test) test stripIndicatio ns:Type 2 diabetes mellitus with other specified complication, with long-term current use of insulin ([facility]) Test blood sugar up to 3 times daily as directed 100 each 04/14/19 25 Active TRUEplus Lancets 33G miscIndication s:Type 2 diabetes mellitus with other specified complication, with long-term current use of insulin ([facility]) Test blood sugar up to 3 times daily as directed 100 each 04/14/19 25 Active Multiple Vitamin (multivitamin) tablet Take 1 tablet by mouth Once per day. 90 tablet 3 04/20/19 25 Active ammonium lactate (Lac-Hydrin) 12 % lotionIndicati ons:Xerosis of skin APPLY TOPICALLY TO THE AFFECTED AREA(S) EVERY DAY NEEDED FOR DRY SKIN 400 mL 1 05/18/19 25 Active latanoprost (Xalatan) 0.005 % ophthalmic solution ADMINISTER 1 DROP INTO BOTH EYES ONCE PER DAY. 7.5 mL 1 07/30/19 25 Active Lantus SoloStar 100 UNIT/ML penIndications :Type 2 diabetes mellitus with other specified complication, with long-term current use of insulin ([facility]) Inject subcutaneously 36 units once daily 15 mL 3 10/21/19 25 Active insulin lispro (HumaLOG KWIKPEN) 100 UNIT/ML injectionIndic ations:Type 2 diabetes mellitus with other specified complication, with long-term current use of insulin ([facility]) Inject subcutaneously 4 units once daily before dinner. Do not use if skipping meal. 15 mL 10/21/19 Active insulin pen needle (BD ULTRA-FINE PEN NEEDLES) 29G x 12.7mm miscIndication s:Type 2 diabetes mellitus with other specified complication, with long-term current use of insulin (CMS/HCC) Use with insulin administration twice daily as directed 100 each 10/21/19 25 Active Alcohol Swabs (Alcohol Prep) 70 % padsIndication s:Type 2 diabetes mellitus with other specified complication, with long-term current use of insulin (CMS/HCC) Use as directed 100 each 10/21/19 25 Active Continuous Glucose Geophysical Party Chief (FreeStyle Janey 3 [place]) deviceIndicati ons:Type 2 diabetes mellitus with other specified complication, with long-term current use of insulin (CMS/HCC) 1 each Once per day. Use as directed for CGM 1 each 01/01/20 25 Active Continuous Glucose Sensor (FreeStyle Janey 3 Plus Sensor) miscIndication s:Type 2 diabetes mellitus with other specified complication, with long-term current use of insulin (CMS/HCC) 1 each every 15 days. Apply 1 every 15 days as directed for CGM 2 each 01/01/20 25 Active glucose blood (FreeStyle Precision Nathan Test) test strip Check 4 times a day 100 each 01/01/20 25 026 Active clotrimazole (Lotrimin) 1 % cream Apply topically 2 times daily for 28 days. 30 g 2 01/01/20 25 025 Active hydrOXYzine HCl (Atarax) 10 MG tablet TAKE 1 TABLET BY MOUTH EVERY DAY AT BEDTIME NEEDED FOR ITCHING 30 tablet 2 12/13/19 24 025 Discontin ued(Other ) Continuous Glucose Sensor (FreeStyle Janey 2 Sensor) miscIndication s:Type 2 diabetes mellitus with other specified complication, with long-term current use of insulin (CMS/HCC) Use as directed to monitor glucose ever 8 hours. Replace sensor every 14 days. 2 each 03/24/20 24 025 Discontin ued(Other ) Active Problems Problem Noted Date Diagnosed Date Osteopenia 02/05/2023 GERD (gastroesophageal reflux disease) 3 Pruritus 11/05/2022 Hearing loss 11/05/2022 Coronary artery disease invo lving [place] heart with other form of angina pectoris, unspecified vessel or lesion type 11/05/2022 Chronic pain of left knee 10/09/2022 Overview (10/09/2022): Chronic pain Unknown etiology Records pending from previous PCP Assessment & Plan (10/09/2022 6:59 PM EDT): Will order xray, notify results Rx Voltaren gel Followup 2 weeks with new PCP Constipation 10/09/2022 Overview (04/21/2024): Chronic Assessment & Plan (04/21/2024 8:46 AM EST): Continue Miralax and dietary changes (water and fiber) as first line treatments Assessment & Plan (10/09/2022 7:07 PM EDT): Due for colonoscopy Rx docusate sodium 100 mg BID Prn for constipation Refer to GI d/t chronic constipation and rectal bleeding Continue med for constipation & hemorrhoid ointment Followup 2 weeks or sooner with PCP Chronic bilateral low back pain without sciatica 09/26/2022 Overview (10/09/2022): Chronic pain Unknown etiology Records pending from previous PCP Assessment & Plan (10/09/2022 6:58 PM EDT): Will order xray, notify results Rx Voltaren gel Followup 2 weeks with new PCP Depression 09/26/2022 Diabetes mellitus 09/26/2022 Overview (01/16/2024): Education provided re: therapeutic lifestyle changes. Encouraged patient to exercise/walk as much as possible, avoid soda/sugary beverages, drink water, eat high fiber/whole grains, fresh or frozen fruits and veg, try to avoid greasy and/or sugary foods. DM regimen: - Farxiga 5 mg daily - Trulicity 0.75 mg/0.5ml weekly - Lantus, unknown amount of units? Checking BG twice a day Continue gabapentin 100 mg. Schedule Med Rec w/ MTM for medbox to confirm dosage Lab Results Component Value Date HGBA1C 7.4 (A) 01/15/2024 A1c: 7.4 on 01/15/24 (Target </= 7.0) Microalbumin/Cr:Alb: pending Lipids: pending Eye exam: discuss at next appt Dental: discuss at next appt PNA (PPSV, then PCV 13): No record, pending records from previous PCP. Discuss PCV 20 at next visit TDap/Td: Perform at next visit Foot exam/peripheral pulses: Perform at next visit KENNY/ARB: lisinopril 5 mg Statin: atorvastatin 40 mg Assessment & Plan (04/21/2024 8:46 AM EST): Continue followup with CDTM Assessment & Plan (10/09/2022 7:05 PM EDT): Continue current regimen Refer to MTM Check lipid panel and microalbumin Followup 2 weeks or sooner PRN External hemorrhoids 09/26/2022 Overview (09/26/2022): otherwise normal colonoscopy, repeat in 10 years ie 2021 Glaucoma 09/26/2022 Hypertension 09/26/2022 Assessment & Plan (04/21/2024 8:48 AM EST): -Lisinopril held following ED visit for dizziness -Reports home BP values in the 10-120s/60s-70s. Continue to HOLD lisinopril and continue monitoring home BP readings. -Follow up for HDF with in person visit, to be scheduled Assessment & Plan (01/16/2024 3:13 PM EDT): -Lisinopril held following ED d/t soft BP values -Reports home BP values in the 100s/60s-70s. Advised to continue to HOLD lisinopril and continue monitoring home BP readings. -Follow up with PCP as scheduled at end of month, sooner as needed Obstructive sleep apnea syndrome 09/26/2022 Overview (10/09/2022): 2009 - moderate, obstructive Has CPAP machine Assessment & Plan (10/09/2022 6:57 PM EDT): F/u PRN with new PCP Urinary incontinence, mixed 09/26/2022 Health care maintenance 09/26/2022 Overview (10/09/2022): Routine Health Maintenance: Immunizations: HIV: Pending Hep C: pending Hepatitis B: pending Pap Smear: Requested records from previous PCP Mammogram: Requested records from previous PCP BMD: >age 65 Requested records from previous PCP Colonoscopy: hx of colonoscopy a long time ago Requested records from previous PCP. Due for repeat. Refer GI 09/26/22 Lung cancer: Never smoker Eye: discuss at next visit Dental: discuss at next visit Resolved Problems Problem Noted Date Diagnosed Date Resolved Date Headache 09/26/2022 11/05/2022 Encounters Date Type Department Care Team Description 12/31/2024 3:00 PM EDT Office Visit [facility] [address] [place] [phone] Greer Prince MD Type 2 diabetes mellitus with other specified complication, with long-term current use of insulin ([facility]) (Primary Dx); Dietary counseling; Exercise counseling; Health care directive on file; Postmenopausal bleeding; Dysuria; Encounter for immunization 12/31/[address] [facility] [address] [place] [phone] Greer Prince MD Type 2 diabetes mellitus with other specified complication, with long-term current use of insulin (CMS/HCC) 12/31/2024 Travel 12/30/[address] [facility] [address] [place] [phone] Ashley Mckinney MA 12/21/[address] [facility] [address] [place] [phone] Greer Prince MD Appointment Request 12/09/[address] [facility] [address] [place], [place] [address], [place] [address] Greer Prince MD 12/04/[address] [facility] [address] [facility] [place] [address] Greer Prince MD 11/27/[address] [facility] [address] [facility] [place] [address] Greer Prince MD 11/23/[address] [facility] [address] [facility] [place] [address] Greer Prince MD 11/17/[address] [facility] [address] [facility] [place] [address] Greer Prince MD 11/09/[address] [facility] [address] [facility] [place] [address] Greer Prince MD 11/03/[address] [facility] [address] [facility] [place] [address] Greer Prince MD 10/22/2024 Travel 10/20/[address] [facility] [address] [facility] [place] [address] Greer Prnice MD Type 2 diabetes mellitus with other specified complication, with long-term current use of insulin ([facility]) (Primary Dx) 10/20/[address] [facility] [address] [facility] [place] [address] Trena Hagen, PharmD 10/20/[address] [facility] [address] [facility] [place] [address] Trena Hagen, PharmD 10/20/2024 Travel 10/20/[address] [facility] [address] [facility] [place] [address] Greer Prince MD 10/12/[address] [facility] [address] [place] [address] Val Crowley, FRANCISCO J 10/12/[address] [facility] [address] [facility] [place] [address] Greer Prince MD Appointment Request 10/09/2024 Results Follow-Up [facility] [address] [place] [address] Greer Prince MD Hemoglobin A1c, Hepatic Function Panel, Lipid Panel, Standard 10/08/[address] [facility] [address] [place] [address] Greer Prince MD 10/05/2024 Travel from Last 3 Months Immunizations Immunization Administration Dates Next Due Influenza injectable quadriv alent preservative free 12/28/2022 Influenza, High Dose Seasona l, Preservative Free 12/31/2024,01/31/2024 Influenza, IIV3, injectable 02/05/2022,1 ,02/26/2018,02/01,01/05/2013 Pfizer Covid-19 Vaccine 12+ 01/31/2024 Pfizer Covid-19 Vaccine 12+ Bivalent 11/05/2022 Pneumococcal Conjugate PCV 20 10/29/2022 Pneumococcal Polysaccharide PPSV23 10/17/2009 RSV Bivalent 02/05/2024 Td (adult), unspecified 02/26/2018 Tdap 11/10/2007 Zoster, Recombinant 01/02/2023,10/29/2022 Family History Medical History Relation Name Comments Stomach cancer Mother Relation Name Status Comments Mother Social History Tobacco Use Types Packs/Day Years [...] Orientation Straight 11/05/2022 10 :44 AM EDT Last Filed Vital Signs Vital Sign Reading Time Taken Comments Blood Pressure 100/60 12/31/2024 3:23 PM EDT Pulse 83 12/31/2024 3:23 PM EDT Temperature 36.1 C (96.9 F) 12/31/2024 3:23 PM EDT Respiratory Rate 20 12/31/2024 3:23 PM EDT Oxygen Saturation 98% 01/31/2024 9:29 AM EDT Inhaled Oxygen Concentration - - Weight 69.9 kg (154 lb) 12/31/2024 3:23 PM EDT Height 160 cm (5' 3 ) 12/31/2024 3:23 PM EDT Body Mass Index 27.28 12/31/2024 3:23 PM EDT Plan of Treatment Upcoming Encounters Date Type Department Care Team (Late st Contact Info) Description 05/13/2025 1:30 PM EST Office Visit [facility] [address] [place] [address] Val Crowley, OD [address] [place] [address] Health Maintenance Due Date Last Done Comments CT Colonography 1955 Dental Oral Exam 1955 Dental Prophylaxis 1955 Dental X-Ray: Bitewings 1955 Dental X-Ray: Full Mouth 1955 FIT DNA/Cologuard 1955 FIT 1955 FOBT 1955 Sigmoidoscopy 1955 Diabetes: Foot Exam 09/19/1963 Eye Exam 09/19/1963 COVID-19 Vaccine ( season) 2024 01/31/2024, 11/05/2022, 09/02/2020 Diabetes: Hemoglobin A1C 01/08/2025 025, 10/05/2024, 05/29/2024, Additional history exists Diabetes: Urine Protein Screening 03/24/2025 03/24/2024, 10/08/2022 Lipid Panel 10/08/2025 10/08/2024, 1107/2023, 10/08/2022 Mammogram 12/19/2025 12/20/2023, 12/06/2022 Alcohol/Substance Use Screening 12/31/2025 12/31/2024 Depression Screening 12/31/2025 12/31/2024, 01/01/20 SDOH Screening 12/31/2025 12/31/2024 Tobacco Screening 12/31/2025 12/31/2024 DTaP/Tdap/Td Vaccines (3 - Td or Tdap) 02/27/2028 02/26/2018, 11/10/2007 Colonoscopy 12/02/2028 12/03/2023 Colorectal Cancer Screening 12/02/2028 Hepatitis C Screening Completed 10/08/2022 Pneumococcal Vaccine: 50+ Years Completed 10/29/2022, 10/17/2009 Zoster Vaccines Completed 01/02/2023, 10/29/2022 RSV Patients and Patients Aged 60 years or older Completed 02/05/2024 Influenza Vaccine Completed 12/31/2024, , 12/28/2022, Additional history exists HIB Vaccines Aged Out No longer eligi [...] patient's age to complete this topic Meningococcal Vaccine Aged Out No asher shirlene eligible based on patient's age to complete this topic RSV under 20 months Aged Out No longe r eligible based on patient's age to complete this topic Rotavirus Vaccines Aged Out No longer eligible based on patient's age to complete this topic Goals Goal Patient Goal Type Associated Problems Recent Progress Patient-Stated? Author Blood Pressure < 140/90 Blood Pressure 100/60(2024 3:23 PM EDT) No Trena Sanchez PharmD Hemoglobin A1c < 7 Result Component 8.8( 11:48 AM EDT) No Trena Sanchez PharmD Procedures Procedure Name Priority Date/Time Associated Diagnosis Comments URINALYSIS, COMPLETE, WITH REFLEX TO CULTURE Routine 12/31/2024 5:46 PM EDT Dysuria LIPID PANEL, STANDARD Routine 10/08/2024 11:48 AM EDT HEPATIC FUNCTION PANEL Routine 11:48 AM EDT HEMOGLOBIN A1C Routine 10/08/2024 11:48 AM EDT POCT GLUCOSE Routine 10/05/2024 2:04 PM EDT Type 2 diabetes mellitus with other specified complication, with long-term current use of insulin (CMS/HCC) POCT GLYCATED HEMOGLOBIN, TOTAL Routine 10/05/2024 2:04 PM EDT Type 2 diabetes mellitus with other specified complication, with long-term current use of insulin (CMS/HCC) ALBUMIN, RANDOM URINE W/CREATININE Routine 03/24/2024 2:29 PM EST BI MAMMOGRAM SCREENING TOMOSYNTHESIS BILATERAL Routine 12/20/2023 1:15 PM EDT HM COLONOSCOPY Routine 12/03/2023 2:09 PM EDT HEPATITIS C AB W/REFL TO HCV RNA, QN, PCR Routine 10/08/2022 8:57 AM EDT Health care maintenance from Last 3 Months or Most Recently Relevant to Health Maintenance Results * (ABNORMAL) Urinalysis, Complete, with Reflex to Culture (12/31/2024 5:46 PM EDT) Color Urine Yellow [facility] Appearance Urine Clear [facility] PH 6.0 5.0 - 9.0 [facility] Glucose Urine UA >=1000(A) Negative mg/dL [facility] Urine Blood Negative Negative [facility] Specific [place] - Urine >=1.030(H) 1.005 - 1.025 [facility] Urine Protein Negative Neg-Trace mg/dL [facility] Urine Ketones Negative Negative mg/dL [facility] Nitrite Urine Negative Negative [facility] Leukocyte Esterase Urine Negative Negative [facility] RBC Urine 0-2 0 - 2 /HPF [facility] Urine WBC 0-5 0 - 5 /HPF [facility] Urine Squamous Epithelial Cell 0-2 0 - 2 /HPF [facility] Urine Bacteria None Seen None Seen [facility] Hyaline Casts, Urine 0-2 0 - 2 /LPF [facility] Urine 12/31/2024 5:46 PM EDT 12/31/2024 5:46 PM EDT Narrative [facility] - 12/31/2024 6:23 PM EDT Urine, Clean Catch us Greer Winkler MD LAB URINE ORDERAB LES Final Result [facility] [address] [place] [address] [phone] * (ABNORMAL) Hemoglobin A1c (10/08/2024 11:48 AM EDT) Hemoglobin A1c 8.8(H) <6.0 % [facility] Comment:Hemoglobin A1C Refer ence Range Adults: 4.8 - 6.0 % Non diabetic: < 6.0 % Goal: < 7.0 %Additional Action Suggested: > 8.0 %Note: Hemoglobin A1c results are invalid for patients with abnormal amounts of HbF. Blood transfusions may impact the HbA1c concentration in the patient sample. Estimated Average Glucose 206 mg/dL [facility] Comment:eAG = Estimated ave rage glucose which is %A1C expressed asaverage glucose, using the formula of the C0Z-LhzrlplLpltrif Glucose study (ADAG), Diabetes Care, Vol.31,#8,Nov. 2007 10/08/2024 11:4 8 AM EDT 10/08/2024 1:09 PM EDT us Greer Winkler MD LAB BLOOD ORDERAB LES Final Result Performing Organization Address City/[facility] Co de Phone Number [facility] [address] [place] [phone] * Hepatic Function Panel (10/08/2024 11:48 AM EDT) Bilirubin, Total 0.4 0.0 - 1.0 mg/dL [facility] Bilirubin, Direct 0.2 0.0 - 0.5 mg/dL [facility] Aspartate Amino Transferase 26 5 - 31 U/L [facility] Alanine Aminotransferase 22 0 - 31 U/L [facility] Total Protein 7.3 6.5 - 8.0 g/dL [facility] Albumin Level 4.0 3.5 - 5.0 g/dL [facility] Alkaline Phosphatase 94 39 - 117 U/L [facility] 10/08/2024 11:4 8 AM EDT 10/08/2024 1:13 PM EDT Greer Winkler MD LAB BLOOD ORDERAB LES Final Result Performing Organization Address City/[facility] Co de Phone Number [facility] [address] [place] [address] [phone] * Lipid Panel, Standard (10/08/2024 11:48 AM EDT) Triglycerides 51 <150 mg/dL [facility] Comment:Desirable Triglyceri de: less than 150 mg/dLBorderline High Triglyceride 150-199 mg/dLHigh Triglyceride: 200-499 mg/dLVery High Triglyceride: greater than or equal to 5OO mg/dL Cholesterol 135 <200 mg/dL [facility] Comment:Desirable Cholestero l: less than 200 mg/dLBorderline High Cholesterol: 200-239 mg/dLHigh Cholesterol: greater than 239 mg/dL LDL Cholesterol Calculated 70 <100 mg/dL [facility] Comment:Desirable LDL: less than 100 mg/dLNear Optimal/Above Optimal LDL: 110- 129 mg/dLBorderline High LDL: 130-159 mg/dLHigh LDL: 160-189 mg/dLVery High LDL: greater than or equal to 190 mg/dL HDL Cholesterol 55 >40 mg/dL [facility] Comment:Desirable HDL: great er than 40 mg/dL Note: This HDL assay may give artificially low results in patients with liver disease. 10/08/2024 11:4 8 AM EDT 10/08/2024 1:13 PM EDT us Greer Winkler MD LAB BLOOD ORDERAB LES Final Result Performing Organization Address [facility]/ZIP Co de Phone Number [facility] [address] [place] [phone] [phone] * (ABNORMAL) POCT A1C (10/05/2024 2:04 PM EDT) Hemoglobin A1C 8.7(A) 4.0 - 5.7 % QC Media Lot # [id number] Lot# Expiration Date ,[id number] Blood 10/05/2024 2:04 PM EDT Greer Winkler MD POINT OF CARE ANA MARIA T ENTER/EDIT ORDERABLES Final Result * POCT Glucose (10/05/2024 2:04 PM EDT) Glucose Blood, POC 153 60 - 200 mg/dL QC Media Lot # [id number] Lot# Expiration Date Blood Capillary blood specimen / Unknown 10/05/2024 2:04 PM EDT us Greer Winkler MD POINT OF CARE ANA MARIA T ENTER/EDIT ORDERABLES Final Result * Albumin, Random Urine W/Creatinine (03/24/2024 2:29 PM EST) Creatinine, Urine 31.40 mg/dL [facility] Microalbumin Urine <5.0 mg/L [facility] Microalbum Creatinine Ratio Ur TNP <30 ug/mg cr [facility] Comment:Unable to calculate albumin/creatinine ratio due to lowmicroalbumin or creatinine result. 03/24/2024 2:29 PM EST 03/24/2024 4:00 PM EST Greer Winkler MD LAB URINE ORDERAB LES Final Result [facility] [address] [place] [phone] * BI Mammogram Screening Tomosynthesis Bilateral (12/20/2023 1:15 PM EDT) Anatomical Region Laterality Modality Breast Bilateral Mammography 12/20/2023 1:15 PM EDT Narrative 01/02/2024 8:31 PM EDT [facility] [address] [place] [address] Mammography Report Signed Patient: Kailyn Stout MR#: [id number] : 1955 Acct:[id number] Age/Sex: 68 / F ADM Date: 12/20/23 Loc: HO.MAMMO Attending Dr: Greer Winkler MD Ordering Physician: Greer Prince MD sults: 1Negative Date of Service: 12/20/23 Follow Up: 1 Year From Orig inal Mammogram Procedure(s): MM tomosynthesis screening BI Accession Number(s): [id number] cc: Greer Prince MD EXAMINATION: MM SCREENING DIGITAL BREAST TOMOSYNTHESIS, BILATERAL CLINICAL INFORMATION: Screening. Asymptomatic. COMPARISON: Mammography: Comparison is made with available priors TECHNIQUE: Digital breast mammography with tomosynthesis is performed in both the craniocaudal and mediolateral oblique views along with computer-aided detection (CAD). FINDINGS: There are scattered areas of fibroglandular density (ACR BI-RADS breast composition Category b). There are no significant masses, abnormal calcifications, or other abnormalities. MM/MM tomosynthesis screening BI IMPRESSION: No mammographic evidence of malignancy. ASSESSMENT: BI-RADS BI-RADS 1 - Negative RECOMMENDATION: Routine annual mammography screening. 1 year F/U This examination should not preclude the clinical evaluation of a suspicious palpable abnormality. This patient's information was entered into a reminder system with a target due date for their next mammogram. Electronically signed by: Brooke Moore DO 01/02/2024 08:29 PM EDT Dictated By: Brooke Moore DO Signed By: <Electronically signed by Brooke Moore DO in OV> 01/02/242028 DD/ 1315 TD/TT: 12/20/23 1342 Traveling Inventory Associate: Procedure Note Donotuseinterpreter, Image - 01/02/2024 [facility] [address] [place] [address] Mammography Report Signed Patient: Kailyn Stout#: [id number] : 4Acct:[id number] Age/Sex: 68 / FADM Date: 12/20/23 Loc: [facility] Attending Dr: Greer Winkler MD Ordering Physician: Greer Prince sults: 1Negative Date of Service: 12/20/23Follow Up: 1 Year From Orig inal Mammogram Procedure(s): MM tomosynthesis screening BI Accession Number(s): [id number] cc: Greer Prince MD EXAMINATION: MM SCREENING DIGITAL BREAST TOMOSYNTHESIS, BILATERAL CLINICAL INFORMATION: Screening. Asymptomatic. COMPARISON: Mammography: Comparison is made with available priors TECHNIQUE: Digital breast mammography with tomosynthesis is performed in both the craniocaudal and mediolateral oblique views along with computer-aided detection (CAD). FINDINGS: There are scattered areas of fibroglandular density (ACR BI-RADS breast composition Category b). There are no significant masses, abnormal calcifications, or other abnormalities. MM/MM tomosynthesis screening BI IMPRESSION: No mammographic evidence of malignancy. ASSESSMENT: BI-RADS BI-RADS 1 - Negative RECOMMENDATION: Routine annual mammography screening. 1 year F/U This examination should not preclude the clinical evaluation of a suspicious palpable abnormality. This patient's information was entered into a reminder system with a target due date for their next mammogram. Electronically signed by: Brooke Moore DO 01/02/2024 08:29 PM EDT RP Dictated By: Brooke Moore DO Signed By: <Electronically signed by Brooke Moore DO in OV> 01/02/242028 DD/ 1315 TD/TT: 12/20/23 1342 Traveling Inventory Associate: Greer Winkler MD IMG BI PROCEDURES Edited Result - Final * Hm Colonoscopy (12/03/2023 2:09 PM EDT) Historical Provider HEALTH MAINTENANCE Final Result * Hepatitis C Antibody with Reflex to HCV, RNA, Quantitative, Real-Time PCR (10/08/2022 8:57 AM EDT) Hepatitis C Antibody NON-REACT DOTTY NON-REACT DOTTY [facility] Expert Comment: HCV antibody was non-reactive. There is no laboratory evidence of HCV infection. In most cases, no further action is required. However, if recent HCV exposure is suspected, a test for HCV RNA (test code 82363) is suggested. For additional information please refer to http://education.Shopography.Diditz/faq/GJM13g4 (This link is being provided for informational/ educational purposes only.) Blood Venous blood specimen / Unknown 10/08/2022 8:57 AM EDT 10/08/2022 8:57 AM EDT Narrative [facility] - 10/10/2022 1:57 PM EDT FASTING:YES FASTING: YES Amberly Jewels Torres DIRECTOR OPERATIONS BROADCAST LAB BLOOD ORDERABLES Final Result [facility] [address], [place] [address] [facility] [address] [place] [address] from Last 3 Months or Most Recently Relevant to Health Maintenance Insurance [facility] [employer] (HMO D-SNP) [place] [id number] DENTAL - [facility] Care Teams Orthopaedic Surgeon Relationship Specialty Start Date End Date Greer Prince MD [address] [place] [address] [phone] PCP - General Internal Medicine 09/26/22 Trena Hagen, Herve [address] [place] [address] [phone] Pharmacist Internal Medicine 05/29/24
--- OUTSIDE RECORDS SUMMARY | 2024-12-31 20:04 | XMS_ITS | Encounter Summary ---
Author Organization [employer] Address [address] [place] [address] [address] [place] [address] Care Team Providers Care Shadowgraph Operator Name Role Phone Greer Prince MD Primary Care Pro vider Trena Hagen PharmD Unavailable [phone] Reason for Visit * Reason Comments Med Refill Encounter Details Date Type Department Care Team (Late st Contact Info) Description 03/11/2023 Refill [facility] [address] [place], [place] [phone] Greer Prince MD [address] [place], [place] [phone] Social History Tobacco Use Types Packs/Day Years [...] Description 05/13/2025 1:30 PM EST Office Visit [facility] [address] [place], [place] [phone] Val Crowley, OD [address] [place] [address] documented as of this encounter Goals Goal [...] documented as of this encounter Care Teams Shadowgraph Operator Relationship Specialty Start Date End Date Greer Prince MD [address] [place] [address] PCP - General Internal Medicine 09/26/22 Trena Hagen, PharmD [address] [place] [phone] Pharmacist Internal Medicine 05/29/24 documented as of this encounter
--- OUTSIDE RECORDS SUMMARY | 2024-12-31 20:04 | XMS_ITS | Encounter Summary ---
Author Organization [employer] Address [address] [facility] [address]t [place] [address] Care Team Providers Care Procurement Internship Name Role Phone Greer Prince MD Primary Care Pro vider Trena Hagen PharmD Unavailable [phone] Encounter Details Date Type Department Care Team (Late st Contact Info) Description 03/26/2024 Orders Only [facility] [address] [place] [address] Provider, MD Jose Martin Social History Tobacco [...] the past 12 months, has t he [employer], gas, oil or water [employer] threatened to shut off services in your [...] Description 05/13/2025 1:30 PM EST Office Visit [facility] [address] [place], [place] [phone] TarkaVal, OD [address] [place] [address] documented as of this encounter Goals Goal Patient Goal Type Associated Problems Recent Progress Patient-Stated? Author Blood Pressure < 140/90 Blood Pressure 100/60(2024 3:23 PM EDT) No Prestons-Dougl e, Trena, PharmD Hemoglobin A1c < 7 Result Component 8.8( 11:48 AM EDT) No Prestons-Rogelio e, Trena, PharmD documented as of this [...] documented as of this encounter Care Teams Procurement Internship Relationship Specialty Start Date End Date Greer Prince MD [address] [place] [phone] PCP - General Internal Medicine 09/26/22 Trena Hagen, FaisalD [address] [place] [id number] Pharmacist Internal Medicine 05/29/24 documented as of this encounter
== END 2024-12-31 17:46 | disposition home or self-care (01) ==
LOC: HO.HHCLNP 17:45
PROVIDERS: Visit Provider Student in an Organized Health Care Education/Training Program
DX: R30.0 Dysuria (principal); Z78.9 Other specified health status
CPT/HCPCS: 81001; 82043; 82570